=== PATIENT | female | born 1970 | race Caucasian/White ===

== ENCOUNTER 2017-07-12 07:00 | Day surgery (SDC) | payer MEDICARE ==
[~2017-07-12] VITALS: Ht 175.3 cm; Wt 71.8 kg
[~2017-07-12 07:00] MED LIST: CeFAZolin 1 GM/DEXTROSE 50 ML IV ONE; LORazepam 2 MG/ML VIAL IVP PRN; SODIUM CHLORIDE 0.9% 1,000 ML IV ONE
[2017-07-12] MEDS ORDERED: CEPH500 PO (07:37)
[2017-07-12] MEDS ORDERED: PROM25 PO (07:37)
[2017-07-12] MEDS ORDERED: OXYC10 PO (07:37)
[2017-07-12 07:45] LABS: BASOPHILS # (AUTO) 0.04 K/uL (0.00-0.20); BASOPHILS % (AUTO) 0.4 % (0.0-2.0); EOSINOPHILS # (AUTO) 0.18 K/uL (0.00-0.70); EOSINOPHILS % (AUTO) 2.14 % (1.0-6.0); HEMATOCRIT 39.7 % (36-46); HEMOGLOBIN 13.9 g/dL (12.0-16.0); LYMPHOCYTES # (AUTO) 1.6 K/uL (1.0-4.8); MEAN CORPUSCULAR HEMOGLOBIN 36.4 pg (26.0-34.0); MEAN CORPUSCULAR VOLUME 104 fL (80-100); MONOCYTES # (AUTO) 0.7 K/uL (0.1-1.0); MONOCYTES % (AUTO) 7.6 % (2.0-9.0); NEUTROPHILS % (AUTO) 70.8 % (40.0-70.0); PLATELET COUNT (AUTO) 232 K/uL (150-450); RED BLOOD CELL COUNT(AUTO) 3.81 MIL/uL (4.00-5.20); RED CELL DISTRIBUTION WIDTH 11.2 % (11.5-14.5); WHITE BLOOD COUNT (AUTO) 8.5 K/uL (4.5-11.0)
[2017-07-12] MEDS ORDERED: LORazepam 2 MG/ML VIAL ONE (07:48)
[2017-07-12 07:49] LABS: RBC MORPHOLOGY COMMENT ABNORMAL RBC MORPH
[2017-07-12] MEDS ORDERED: MIDAZOLAM HCL 2 MG/2 ML VIAL ONE (07:52)
[2017-07-12] MEDS ORDERED: FentaNYL CITRATE-PF 100 MCG/2 ML VIAL ONE ×2 (07:52→09:07)
[2017-07-12] MEDS ORDERED: LIDOCAINE HCL/PF 1% 30 ML VIAL ONE ×2 (07:53→08:05)
[2017-07-12 08:03] LABS: ANION GAP 12 mmol/L (8-16); CALCIUM, TOTAL 8.7 mg/dL (8.8-10.5); CARBON DIOXIDE 25 mmol/L (22-29); CHLORIDE 100 mmol/L (98-107); CREATININE 0.73 mg/dL (0.60-1.30); GLOMERULAR FILTR. RATE CALC > 60 mL/min (>60); POTASSIUM 3.9 mmol/L (3.5-5.1); SODIUM SERUM 137 mmol/L (136-145); UREA NITROGEN, BLOOD 11 mg/dL (7-18)
[2017-07-12 08:08] LABS: ALANINE AMINOTRANSFERASE 32 U/L (12-78); ALBUMIN 3.6 g/dL (3.4-5.0); ASPARTATE AMINOTRANSFERASE 53 U/L (15-37); BILIRUBIN,TOTAL 0.4 mg/dL (0.1-1.0); TOTAL PROTEIN, SERUM 7.2 g/dL (6.4-8.2)
[2017-07-12] MEDS ORDERED: MIDAZOLAM HCL 2 MG/2 ML VIAL IVP ONE (08:32)
[2017-07-12] MEDS ORDERED: FentaNYL CITRATE-PF 100 MCG/2 ML VIAL IVP ONE (09:13)
[2017-07-12] MEDS ORDERED: SODIUM CHLORIDE 0.9% 1,000 ML IV SCH (09:29)
[2017-07-12] MEDS ORDERED: HYDROmorphone 2 MG/ML SYRINGE IVP PRN (09:30)
[2017-07-12] MEDS ORDERED: OxyCODONE HCL/ACETAMINOPHEN 5-325 MG TABLET PO PRN ×2 (09:30)
[2017-07-12] MEDS ORDERED: HYDROmorphone HCL 2 MG TABLET PO ONE ×2 (09:30→10:00)
[2017-07-12] MEDS ORDERED: PROMETHAZINE HCL 25 MG/ML VIAL IM ONE (10:00)
[2017-07-12] MEDS ORDERED: PROMETHAZINE HCL 25 MG/ML VIAL ONE (10:33)
[2017-07-12] MEDS ORDERED: HYDROmorphone HCL 2 MG TABLET ONE (10:33)
== END 2017-07-12 11:30 | disposition home or self-care (01) ==
LOC: SURGERY 07:00 → EDSTATUS 08:00 → SURGERY 11:30
PROVIDERS: ATTEND Radiology Diagnostic Radiology
DX: N63.20 Unspecified lump in the left breast, unspecified quadrant (principal); J45.909 Unspecified asthma, uncomplicated; Z87.891 Personal history of nicotine dependence; Z79.899 Other long term (current) drug therapy
CPT/HCPCS: 19105 ×2; 36415; 80053; 84703; 85025; 99152; 99153; C2618; J0690; J2060; J2250; J2550; J3010; J3490; J7030